=== PATIENT | female | born 1950 | race Caucasian/White ===

== ENCOUNTER 2017-07-26 10:13 | Day surgery (SDC) | payer MEDICARE, MEDICAID ==
[~2017-07-26 10:13] MED LIST: ACETAMINOPHEN 1,000 MG/100 ML BTL IV ONE; CLINDAMYCIN 600MG/50ML PREMIX 600 MG/50 ML BAG IVPB ONE
[2017-07-26] MEDS ORDERED: SEVOFLURANE 250 ML INH ONE (10:14)
[2017-07-26] MEDS ORDERED: FENTANYL PF 100MCG/2ML VIAL IV ONE (10:14)
[2017-07-26] MEDS ORDERED: EPHEDRINE SULFATE 50 MG/ML ML IV ONE (10:14)
[2017-07-26] MEDS ORDERED: VANCOMYCIN HCL 1 GM VIAL IVPB ONE (10:14)
[2017-07-26] MEDS ORDERED: PROPOFOL 10 MG/ML VIAL IV ONE (10:14)
[2017-07-26] MEDS ORDERED: BUPIVACAINE LIPOSOME 266MG/20ML VIAL IV ONE (10:14)
[2017-07-26] MEDS ORDERED: LIDOCAINE 2% MDV (20MG/ML) 20ML VIAL IV ONE (10:14)
[2017-07-26] MEDS ORDERED: BUPIVACAINE 0.25% W/EPI MPF 30ML VIAL IVP ONE (10:14)
[2017-07-26] MEDS ORDERED: ONDANSETRON HCL IV 4 MG/2 ML VIAL IVP ONE (10:14)
[2017-07-26] MEDS ORDERED: KETOROLAC 30 MG/ML VIAL IVP ONE (10:14)
[2017-07-26] MEDS ORDERED: METOPROLOL TART 5 MG/5 ML VIAL IV ONE (10:14)
[2017-07-26 10:27] LABS: BASO % 0.3 % (0-6); EOS % 1.5 % (0-6); GRAN % 78.1 % (47-80); HEMATOCRIT 35.9 % (35.0-47.0); HEMOGLOBIN 11.2 gm/dl (11.6-16.0); LYMPH % 12.3 % (16-45); MEAN CELL VOLUME 86.3 fl (81-97); MEAN CORPUSCULAR HEMOGLOBIN 26.9 pg (27-33); MEAN CORPUSCULAR HGB CONC 31.2 g/dl (32-36); MEAN PLATELET VOLUME 8.9 fl (7.4-10.4); MONO % 7.8 % (0-9); PLATELET COUNT 404 K/uL (130-400); RED BLOOD COUNT 4.16 M/uL (3.80-5.40); RED CELL DISTRIBUTION WIDTH 15.1 % (11.5-14.5); WHITE BLOOD COUNT W/O DIFF 10.1 K/uL (4.2-12.2)
[2017-07-26 10:52] LABS: CREATININE 1.2 mg/dL (0.5-0.9)
--- NOTE | 2017-07-27 10:12 | Operative Note ---
DATE OF SURGERY: 07/26/2017 PREOPERATIVE DIAGNOSIS: MEDIAL OPEN FRACTURE WOUND INFECTION STATUS POST OPEN FRACTURE/DISLOCATION BIMALLEOLAR OF RIGHT ANKLE, FAILED REDUCTION AND DISLOCATION OF ANKLE FROM NONCOMPLIANCE. POSTOPERATIVE DIAGNOSIS: MEDIAL OPEN FRACTURE WOUND INFECTION STATUS POST OPEN FRACTURE/DISLOCATION BIMALLEOLAR OF RIGHT ANKLE, FAILED REDUCTION AND DISLOCATION OF ANKLE FROM NONCOMPLIANCE. PROCEDURES: 1. HARDWARE REMOVAL OF LATERAL FIBULAR CASSANDRA AND TWO SCREWS. 2. REPEAT INTERNAL FIXATION WITH PLATE OF A LATERAL MALLEOLUS FRACTURE WITH ANTIBIOTIC BONE GRAFT. 3. IRRIGATION, DEBRIDEMENT EXCISIONAL OF SKIN, SUBCUTANEOUS TISSUE, MUSCLE OF MEDIAL ANKLE WOUND. SURGEON: MARIA TERESA HARTMAN M.D. ANESTHESIA: ENDOTRACHEAL, KATHRYN, TEXTURE ARTIST. COMPLICATIONS: NONE. BLOOD LOSS: 50 ML. OPERATIVE FINDINGS: Unstable ankle failed fixation of lateral malleolus. Hardware removed in its entirety and repeat internal fixation with a lateral plate, buttressing plate with bone grafts stabilizing the ankle and preventing posterolateral dislocation of the talus. Significant defect poor quality bone, and defect in the lateral malleolus and culture taken of the medial wound and some drainage of the medial wound, no gross puss. INDICATIONS FOR OPERATION: A 67-year-old female with multiple medical problems. She sustained a femoral neck fracture and she underwent hemiarthroplasty a few weeks ago. She was sent to Rehab from the hospital and then fell at the Rehab Center and her leg sustained a grade 3 open bimalleolar fracture/dislocation. She underwent emergent irrigation, debridement, and internal fixation of the fibula. She then went to another jail, [facility], and told our office staff that she had been walking on the ankle, which she was supposed to be strict no weightbearing, and she was brought into the office last week with failed fixation and dislocated ankle that was unreducible and she is now scheduled for the procedures above. She had a large medial open fracture wound as well therefore no hardware was placed in that at the time because prior to her internal fixation, the ankle was stable. I explained to the patient and the patient's family the risks, benefits in detail to her for diagnosis and procedures. In fact, this is a very high risk injury. It is an open fracture to begin with. High risk for infection, need for other procedures even amputation eventually if it becomes deeply infected and cannot be eradicated. Also, nerve injury, vessel injury, blood clot, nonunion and malunion of hardware failure, need for hardware removal at a later date, and the fact that she may need long- term antibiotics, she may need multiple further procedures, and that she needs to be compliant. She has been noncompliant walking on this ankle and she is supposed to be completely strict no weightbearing. This hardware cannot hold weightbearing. It is not meant for weightbearing until the fracture starts to heal, which is usually in about eight weeks. They are aware of all of this and agreed to the procedure. PROCEDURE: The patient was brought to the O.R. and placed in the supine position for surgery. General anesthesia induced and her right lower extremity prepped and draped in sterile fashion. Attention to the lateral fibula first. We made an open incision over the lateral fibula curving anteriorly distally. The skin and subcutaneous tissues dissected down to the fracture site. We identified the two Synthes muscles screws from the previously placed intramedullary fibular cassandra and removed those in their entirety. Next, removed the cassandra distally. Next, inspected the fracture site, irrigated it, and had a large oblique fracture with significant comminution and defect in the distal fibula and lateral malleolus. We brought the lateral malleolus anteriorly with reduction forceps, brought in the lateral buttressing-type plate, and then buttressed the fibula and this held the talus stable now and would not dislocate posteriorly as it would fall out previously. We brought the plate in and over-reduced the distal lateral malleolus and distal fibula and bent the plate slightly inwards and then began to fix it, clamped it down provisionally to the proximal fibular shaft, and then drilled several screws in the usual fashion, locking screws proximally and then distally, smaller 2.7 mm screws into the lateral malleolus fragment buttressing that up and bringing it anteriorly and this held the talus stable so the ankle would not fall out or dislocate in this position. I took several images with fluoroscopy verifying screw lengths. Next, we irrigated copiously with antibiotic solution, placed antibiotic bone graft, [employer], with 1 gram of Vancomycin putty and packed it in the distal fibular defect site, which was most predominantly anteriorly. Closed the wound with pamela only due to the possible infection medially. Attention was turned to the medial wound, removed the suture from the medial wound, took culture deep. There was no gross puss exuding out. Irrigated it with about 2 liters of antibiotic solution and debrided the skin and subcutaneous tissue excisional and then closed it loosely with a #1 vertical mattress PDS stitch. We will plan on placing a Wound VAC in the office likely in one or two days to this area. However, the wound could be basically approximated. The medial malleolus was not fixed due to the site likely being contaminated, infected, and it could cause further deeper infection in her ankle at this point and to the ankle being stable with the lateral malleolus fixation and buttress plate. This completed our procedures. The incision was injected with 0.50% Marcaine and Exparel. Sterile dressing applied and placed in a cast boot. The patient tolerated the procedures well. No intraoperative complications. All sponge, needle, and blade counts correct. Recovery stable, neurovascularly intact. She will be discharged as an outpatient back [facility] and follow-up in one week. Send the Op note with Infectious Disease consult postoperatively. Check her cultures and likely need long-term IV antibiotics. We will continue her on oral in the meantime, Cipro 750 b.i.d.. Again, strict no weightbearing instructions were given. cc: Dr. Cory Oliver JOB NUMBER: [id number] [facility]
== END 2017-07-26 16:55 | disposition home or self-care (01) ==
LOC: SUR 10:13
PROVIDERS: ATTEND Orthopaedic Surgery
DX: S82.84 Bimalleolar fracture of lower leg (principal); T81.4XXD Infection following a procedure, subsequent encounter; Z91.19 Patient's noncompliance with other medical treatment and regimen; I10 Essential (primary) hypertension; E11.9 Type 2 diabetes mellitus without complications; Z79.4 Long term (current) use of insulin
CPT/HCPCS: 20680; 27814; 27726; 01480; 85025; 80048; 36416; 82948; 76000; J1885; J2405; J3370; J3010; C9290